=== PATIENT | female | born 1985 | race Caucasian/White ===

== ENCOUNTER → 2017-01-03 | Outpatient (CLI) | payer BC | LOC: BMCIMAGING 08:55 | PROVIDERS: ATTEND Physician Assistant | DX: M54.5 Low back pain (principal); R07.89 Other chest pain ==

== ENCOUNTER 2017-03-03 14:18 | Emergency (ER) | payer BC, OTHER ==
[2017-03-03 14:26] VITALS: BP 112/87; PULSE 78; RESP 16; TEMP 98.6; O2SAT 96
--- NOTE | 2017-03-03 15:18 | EDPHY ---
H & P Time Seen by Provider: 03/03/17 14:22 HPI/ROS: HPI Finger injury. 31-year-old female from up stairs. She works as a nurse on Labor and delivery. She was transferring a patient when she got her middle finger PIP joint caught in the railing of a bed. She complains of isolated pain to this finger and the PIP joint specifically. No other injury or complaint. She is right- hand dominant. ROS: Constitutional: No fever, no chills. No weakness. Musculoskeletal: As above. Skin: No laceration. Neurological: No focal weakness or altered sensation. Past medical history: . Social history: Nonsmoker. Here by herself. No alcohol. Physical Exam: General Appearance: Alert, no distress. This patient is responding to questions appropriately and in full sentences. This patient appears well- hydrated and well-nourished. Eyes: Pupils equal and round no pallor or injection. No lid edema, erythema or injection. Hand exam: Significant for a mildly swollen PIP joint of the 3rd digit. She has got a superficial abrasion to the dorsal aspect of the PIP joint. There is mild swelling associated with the joint. The finger is neurovascularly intact as is the hand. She does have pain with axial compression of this digit. Pain is isolated to that PIP joint. She has discomfort with passive and active flexion extension of the PIP joint. Neurological: Motor sensory function is grossly intact. Cranial nerves are normal. Gait is normal. Skin: Warm and dry, no rashes. No significant lacerations or abrasions. Extremities are symmetrical. All joints range without pain or impingement except noted. Psychiatric: No agitation. No depression. Database: EKG: Imaging: Right 3rd digit x-ray series: Negative for fracture, subluxation, dislocation. Interpreted by me. Procedures: Procedure: Splint placement. A aluminum finger splint was applied. After application of the splint I returned and re-examined the patient. The splint was adequately immobilizing the joint and distal to the splint the patient's circulation and sensation was intact. Emergency department course: X-rays obtained. X-ray results reviewed with the patient. Right hand 3rd digit placed in an aluminum finger splint. Follow-up and return to emergency department precautions reviewed with her. All of her questions were answered. She was discharged in good condition. Differential Diagnosis: The differential diagnosis on this patient includes but is not limited to sprain versus contusion right 3rd finger PIP joint. Fracture, subluxation, dislocation unlikely. This represents a partial list of diagnoses considered. These considerations are based on history, physical exam, past history, reassessment and diagnostic testing. Smoking Status: Never smoked Constitutional: Initial Vital Signs Temperature (C) 37 C 03/03/17 14:18 Heart Rate 78 03/03/17 14:18 Respiratory Rate 16 03/03/17 14:18 Blood Pressure 112/87 H 03/03/17 14:18 O2 Sat (%) 96 03/03/17 14:18 O2 Delivery Mode Room Air Allergies/Adverse Reactions: latex [Latex] Allergy (Verified 12/10/14 03:03) legumes Allergy (Verified 11/23/15 14:10) Home Medications: Medication Instructions Recorded [place]-3 Fatty Acids [Fish Oil] 500 mg PO DAILY 12/10/14 Lactobacillus Combination No.4 1 each PO 11/23/15 [Probiotic] Levothyroxine [Synthroid 25 mcg 25 mcg PO DAILY06 11/23/15 (*)] Hydrocodone/APAP 5/325 [[place] 1 - 2 tab PO Q4 PRN #30 tab 02/02/16 5/325 (*)] Ibuprofen [Motrin (*)] 600 mg PO Q6 PRN #0 tab 02/02/16 Medical Decision Making - Diagnostics Imaging Results: Imaging Impressions Finger X-Ray 03/03/17 14:25 Impression: Negative for fracture. Departure - Departure Disposition: Home, Routine, Self-Care Clinical Impression: Injury of right middle finger, Finger PIP joint contusion Condition: Good Instructions: Finger Sprain (ED) Additional Instructions: Read and follow provided instructions. Follow-up with your primary care physician in 2-3 days for re-evaluation as needed. I have also provided you with referral information for a hand specialist for follow-up if needed. Ibuprofen dosin mg every 6 hours with meals for the next 3 days only. Return to the emergency department for worsening pain, discoloration, loss of sensation or weakness or other serious concerns. Referrals: NONE *PRIMARY CARE P,. [Primary Care Provider] - As per Instructions Mandy Colon MD [Medical Doctor] - As per Instructions
== END 2017-03-03 15:25 | disposition home or self-care (01) ==
DX: S60.031A Contusion of right middle finger without damage to nail, initial encounter (principal); W23.1XXA Caught, crushed, jammed, or pinched between stationary objects, initial encounter; Y92.69 Other specified industrial and construction area as the place of occurrence of the external cause; Y99.0 Civilian activity done for income or pay; Y93.89 Activity, other specified
CPT/HCPCS: L3925

== ENCOUNTER → 2017-09-19 | Outpatient (CLI) | payer BC | LOC: BMCIMAGING 10:40 | PROVIDERS: ATTEND Physician Assistant | DX: R10.12 Left upper quadrant pain (principal) ==

== ENCOUNTER → 2017-09-19 | Outpatient (CLI) | payer BC | LOC: FIMAGING 17:01 | PROVIDERS: ATTEND Physician Assistant | DX: R10.12 Left upper quadrant pain (principal) ==

== ENCOUNTER → 2018-06-11 | Outpatient (CLI) | payer BC | LOC: FIMAGING 12:03 | PROVIDERS: ATTEND Advanced Practice Midwife | DX: O09.212 Supervision of pregnancy with history of pre-term labor, second trimester (principal); O34.219 Maternal care for unspecified type scar from previous cesarean delivery; N60.02 Solitary cyst of left breast; Z82.79 Family history of other congenital malformations, deformations and chromosomal abnormalities; Z3A.19 19 weeks gestation of pregnancy ==

== ENCOUNTER 2018-06-27 09:23 | Emergency (ER) | payer OTHER, BC ==
[2018-06-27 09:40] VITALS: BP 117/73
--- NOTE | 2018-06-27 09:44 | EDPHY ---
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 She was sitting up a surgical suite, attaching a nitrous oxide regulator when Some nitrous oxide may have sprayed onto her right hand which she immediately washed off. Denies discoloration or pain to the affected hand. Denies dyspnea , chest pain, abdominal pain or trauma, nausea, vomiting. Feels movements as normal. REVIEW OF SYSTEMS: 10 systems reviewed and negative with the exception of the elements mentioned in the history of present illness PAST MEDICAL & SURGICAL HISTORY: currently 20 weeks . Prior spontaneous pneumothorax history 2013 when she was moving a patient. Asthma. SOCIAL HISTORY: Works as a nurse on Labor and delivery PHYSICAL EXAM (Prior to examination, patient consented to physical exam, hands were washed and my usual and customary physical exam procedures followed) 1) GENERAL: Well-developed, well-nourished, alert and oriented. Appears to be in no acute distress. 2) HEAD: Normocephalic, atraumatic 3) HEENT: Pupils equal, round, reactive to light bilaterally. Sclera anicteric. Nasopharynx, oropharynx, clear, no lesions. Moist Mucous membranes. 4) NECK: Full range of motion, no meningeal signs. 5) LUNGS: Clear auscultation bilaterally, no wheezes, no rhonchi, no retractions. 6) HEART: Regular rate and rhythm, no murmur, no heave, no gallop. 7) ABDOMEN: Gravid. No tenderness., 8) MUSCULOSKELETAL: Right hand: No signs of burn or trauma. There is no discoloration. Moving all extremities, no focal areas of tenderness, no obvious trauma. No peripheral edema or discoloration. 9) BACK: No CVA tenderness, no midline vertebral tenderness, no fluctuance, no step-off, no obvious trauma, no visual or palpable abnormality. 10) SKIN: No rash, no petechiae. 11) Psychiatric: Patient is oriented X 3, there is no agitation. DIFFERENTIAL DIAGNOSIS: In no particular order including but limited to nitrous oxide exposure, hypoxia, this is cutaneous injury such as burn - Personal History LMP (Females 10-55): Current Tetanus/Diphtheria Vaccine: Yes Current Tetanus Diphtheria and Acellular Pertussis (TDAP): Yes - Medical/Surgical History Hx Asthma: Yes Hx Chronic Respiratory Disease: No Hx Diabetes: No Hx Cardiac Disease: No Hx Renal Disease: No Hx Cirrhosis: No Hx Alcoholism: No Hx HIV/AIDS: No Hx Splenectomy or Spleen Trauma: No Other PMH: appy, ovarian cyst, cluster headaches, spontanious medistium pneumo; HYPOTHYROID ON LEVO 25 MCG DAILY - Social History Smoking Status: Never smoked Constitutional: Initial Vital Signs Temperature (C) 36.6 C 06/27/18 09:36 Heart Rate 70 06/27/18 09:36 Respiratory Rate 16 06/27/18 09:36 Blood Pressure 117/73 06/27/18 09:36 O2 Sat (%) 100 06/27/18 09:36 O2 Delivery Mode Room Air Allergies/Adverse Reactions: latex [Latex] Allergy (Verified 06/27/18 09:40) legumes Allergy (Verified 06/27/18 09:40) Home Medications: Medication Instructions Recorded [place]-3 Fatty Acids [Fish Oil] 500 mg PO DAILY 12/10/14 Lactobacillus Combination No.4 1 each PO 11/23/15 [Probiotic] Levothyroxine [Synthroid 25 mcg 25 mcg PO DAILY06 11/23/15 (*)] Medical Decision Making ED Course/Re-evaluation: Re-evaluation with serial exams. heart tones obtained. She notes normal movements. No respiratory distress. Regarding her possible nitrous oxide spray onto her hand she has no evidence of freeze or burn. No discoloration. No signs of cellulitis. At this time I think the patient can be discharged. Given usual customary respiratory precautions instructions. Given usual customary discharge precautions instructions. Care of patient under supervision of secondary supervising physician Dr Lewis with whom I discussed case. Departure - Departure Disposition: Home, Routine, Self-Care Clinical Impression: Poisoning by nitrous oxide Qualifiers: Encounter type: initial encounter Injury intent: accidental or unintentional Qualified Code(s): T41.0X1A - Poisoning by inhaled anesthetics, accidental ( unintentional), initial encounter Condition: Good Instructions: Chemical Skin Burn (ED) Additional Instructions: You have no evidence of skin burn. Return to the ER if you develop decrease in movements, if you develop chest pain, shortness of breath or any other symptoms that concern you. Recommend you go to Labor and delivery and have monitoring performed. Referrals: Iona Aleman MD [Medical Doctor] - 2-3 days, call for appt.
== END 2018-06-27 09:58 | disposition home or self-care (01) ==
DX: T41.0X1A Poisoning by inhaled anesthetics, accidental (unintentional), initial encounter (principal); O99.282 Endocrine, nutritional and metabolic diseases complicating pregnancy, second trimester; Z3A.22 22 weeks gestation of pregnancy

== ENCOUNTER 2018-11-03 16:48 | Inpatient (IN) | payer BC | END 2018-11-08 12:50 | disposition home or self-care (01) | LOC: FLD 16:48 → FOB 11-04 20:35 ==